=== PATIENT | female | born 1955 | race Caucasian/White ===

== ENCOUNTER 2016-04-11 21:12 | Inpatient (IN) ==
--- NOTE | 2016-04-11 21:50 | Emergency Department Note ---
Arrival - Arrival Chief Complaint: Arrhythmia/Palpitations Stated Complaint: PALPATATIONS AND SOB ED Nursing Triage Note: TRANSFERRED FROM [facility] WITH C/O SOB AND PALPATATIONS. DENIES CP. REPORTS SOB ON EXERTION Mode of Arrival: Stretcher Limitations: No Limitations Source: Patient Time Seen by Provider: 04/11/16 21:41 - History of Present Illness HPI Narrative: This 60-year-old white female presented to her doctor's office earlier today with shortness of breath and chest tightness associated with a sensation of palpitations. In the doctor's office she was found to have SVT at 140. She was subsequently transferred to [facility] whereby the time she reached there, she converted to a sinus rhythm at 100. Laboratory at [facility] revealed a bump in troponin and for this reason she was transferred to this institution for further evaluation. She was given an aspirin Lovenox Lopressor and nitro paste at [facility] before transfer here. She specifically denies complaints of diaphoresis, nausea, or vomiting with this incident. Currently she feels improved and in no acute distress. Onset (ago): hour(s) (patient presents 8 hours post onset of symptoms) Consistency: now resolved Date of Last Menstrual Period: HYST Allergies/Adverse Reactions: Allergies Allergy/AdvReac Type Severity Reaction Status Date / Time codeine Allergy Mild Vomiting Verified 04/11/16 21:24 sulfamethoxazole Allergy Mild Vomiting Verified 04/11/16 21:24 [From Bactrim] trimethoprim [From Bactrim] Allergy Mild Vomiting Verified 04/11/16 21:24 Review of System - Review of System 12 point system: reviewed and no additional remarkable complaints except as stated - Review of System Constitutional: Present: as per HPI Respiratory: Present: as per HPI Cardiovascular: Present: as per HPI Gastrointestinal: Present: as per HPI Medical,Surgical,& Family Hx - Medical History Cardio: History of: Hypertension Gastrointestinal: History of: Diverticulitis/ Diverticulosis, GERD, GI Problems (RECTAL BLEED) Musculoskeletal: History of: Back/Neck Problems (BACK SURGERY) - Surgical History Abdominal Surgeries: Surgical HX of: Cholecystectomy Reproductive Surgeries: Surgical HX of;: Hysterectomy Orthopedic Surgeries: Surgical HX of;: Total Hip Replacement (BILATERAL) - Social History Smoking Status: Never smoker Frequency of Alcohol Use: None Type of Drug Use: None Exam Physical Examination: GENERAL: Obese white female in no acute distress, take him to use another in no acute distress. HEENT: Normocephalic. No trauma. Moist mucous membranes. EOMI. PERRLA. ENT clear NECK: Supple. No adenopathy. JVD CARDIAC: Regular. 1/4 daniel, loud p2. Heart rate 80 CHEST: Clear to auscultation. No respiratory distress. O2 sat 97% ABDOMEN: Soft. Nontender. Active bowel sounds. EXTREMITIES: No trauma. Normal ROM. No pedal edema. SKIN: No diaphoresis. No rash. NEURO: Alert. No focal deficits. Vital Signs: Vital Signs Temperature 98.3 F 04/11/16 21:13 Pulse Rate 79 04/11/16 21:13 Respiratory Rate 18 04/11/16 21:13 Blood Pressure 195/111 04/11/16 21:13 O2 Sat by Pulse Oximetry 97 04/11/16 21:13 Course - Reevaluation(s) Reevaluation #1: Discussed with patient the need for hospitalization for further evaluation given her cardiac enzyme - Consultations Consultation #1: Discussed with Dr. Galvan, hospitalist who will admit for further evaluation and treatment Results - Labs Labs: Lab results per [facility] glucose 116 creatinine 1.7 BUN 16 potassium 4.1 white blood cell count 9500 hematocrit 39 troponin 0.159 CK 84 MB 1.8 Time noted the increase in troponin by our lab. - Impressions EKG per [facility] sinus tachycardia at 100 with normal DE interval and QRS duration although prolonged QT interval noted. No acute injury pattern noted. - Diagnostic Findings Procedure: Chest x-ray: image reviewed by me, report reviewed by me (area megaly otherwise no acute changes) Disposition Clinical Impression: abnormal cardiac enzymes, recurrent SVT Case discussed with: patient Disposition: Still a Patient Condition: Stable Time of Disposition: 22:54
--- NOTE | 2016-04-11 22:09 | EKG Report ---
Stationary ECG Study [facility] ER Test Date: 04/11/2016 10:08:03 PM Pat Name: JULITO SINGH Department: Room: Gender: F Silver Solderer: : 1955 Requested by: Magdiel Graham Order Number: [id number] Reading MD: ARPIT HOLBROOK Intervals [place] Rate: 91 P: 51 ND: 154 QRS: 36 QRSD: 68 T: 132 QT: 404 QTc: 452 Interpretive Statements SINUS RHYTHM ST DEVIATION AND MODERATE T-WAVE ABNORMALITY, CONSIDER ANTEROLATERAL ISCHEMIA Electronically Signed On 04-12-16 13:12:04 EMBEDDED LINUX ENGINEER by ARPIT HOLBROOK [id number]
--- NOTE | 2016-04-11 22:31 | XRay Report ---
Referring Physician: Magdiel Cleary Exam: XR chest 1V portable Date: April 11, 2016 at 9:47 PM Reason: Shortness of breath Comparison: Chest one view April 11, 2016 at 6:44 PM Findings: There is borderline cardiomegaly. There is mild density at the peripheral aspect of the left lung base. This could represent soft tissue artifact, but consolidation or mild left pleural fluid is not excluded. A followup chest PA lateral study would be helpful. No pneumothorax is identified. No acute osseous process is seen. Impression: 1. Borderline cardiomegaly. 2. There is mild density at the peripheral aspect of the left lung base. This could represent represent soft tissue artifact, but consolidation or mild left pleural fluid is not excluded. Followup with a chest PA lateral study would be helpful. PROCEDURE INTERPRETED AT [facility] DEPARTMENT OF RADIOLOGY Final Report Signed by: Dr. Blaine Cleveland
[2016-04-11 22:38] LABS: Troponin I Only 0.187 NG/ML (0.00-0.045)
[2016-04-11] MEDS ORDERED: hydrALAZINE 20 MG/1 ML VIAL IV STA (22:52)
[2016-04-11] MEDS ORDERED: hydrALAZINE 20 MG/1 ML VIAL ONE (22:54)
[2016-04-12] MEDS ORDERED: ZALEPLON 5 MG CAPSULE PO PRN (00:04)
[2016-04-12] MEDS ORDERED: ACETAMINOPHEN 325 MG TABLET PO PRN (00:04)
[2016-04-12] MEDS ORDERED: ENOXAPARIN 40 MG/0.4 ML SYRINGE SUBCUT SCH (00:04)
--- NOTE | 2016-04-12 00:17 | Hospitalist History & Physical ---
Assessment and Plan (1) Paroxysmal SVT (supraventricular tachycardia) Status: Acute Assessment and plan: The patient is admitted to the hospital with paroxysmal supraventricular tachycardia which has since terminated. The patient be hydrated and observed overnight the patient will have thyroid function testing and repeat troponin in the morning we will obtain cardiology consultation Current Visit: Yes (2) H/O iron deficiency anemia Status: Chronic Current Visit: Yes History of Present Illness Chief complaint: palpitations and abnormal troponin History of present illness: Ms. Collins is a 60 year old female with history of paroxysmal supraventricular tachycardia. The patient has spell on the date of admission to the hospital. She was seen in the physician's office and noted to have heart rate of about 140. She was referred to the emergency room at [facility] and subsequently transferred to [facility] when her troponin was found to be minimally elevated. The tachycardia was terminated. The patient now complains of generalized weakness without shortness of breath. The patient is not having any angina. The patient's previous symptoms were moderate, continuous, and improved after tachycardia was terminated at [facility]. Home Medications Medication Instructions Recorded Confirmed Type ACETAMIN/diphenhydrAMIN 500-25 1 tablet PO BEDTIME 04/11/16 04/11/16 History [Tylenol PM] Citalopram [CeleXA] 40 mg PO DAILY 04/11/16 04/11/16 History Docusate Sodium 100 mg PO DAILY 04/11/16 04/11/16 History Metoprolol Tartrate 100 mg PO BID 04/11/16 04/11/16 History Multivit-Min/FA/Lycopene/Lut 1 tablet PO DAILY 04/11/16 04/11/16 History [Centrum Silver Tablet] Omeprazole [Prilosec] 20 mg PO BID 04/11/16 04/11/16 History Potassium Citrate [Urocit K] 10 meq PO BID 04/11/16 04/11/16 History Ranitidine HCl [Zantac] 300 mg PO BID 04/11/16 04/11/16 History hydrALAZINE TAB [Apresoline Tab] 100 mg PO BID 04/11/16 04/11/16 History Ascorbic Acid [Vitamin C] 125 mg PO BID 04/12/16 04/12/16 History Ferrous Sulfate 325 mg PO BID 04/12/16 04/12/16 History Allergies Allergy/AdvReac Type Severity Reaction Status Date / Time codeine Allergy Mild Vomiting Verified 04/11/16 21:24 sulfamethoxazole Allergy Mild Vomiting Verified 04/11/16 21:24 [From Bactrim] trimethoprim [From Bactrim] Allergy Mild Vomiting Verified 04/11/16 21:24 Medical,Surgical,& Family Hx - Medical History Cardio: History of: Hypertension Gastrointestinal: History of: Diverticulitis/ Diverticulosis, GERD, GI Problems (RECTAL BLEED) Musculoskeletal: History of: Back/Neck Problems (BACK SURGERY) - Surgical History Abdominal Surgeries: Surgical HX of: Cholecystectomy Reproductive Surgeries: Surgical HX of;: Hysterectomy Orthopedic Surgeries: Surgical HX of;: Total Hip Replacement (BILATERAL) - Social History Smoking Status: Never smoker Frequency of Alcohol Use: None Type of Drug Use: None Marital Status: Lives With:: Spouse Functional capacity: independent ambulation 12 point system: reviewed and no additional remarkable complaints except as stated Exam - Constitutional Exam: Constitutional System: Mild distress. Mild tremulousness. Head: Normocephalic, atraumatic. Ears, Nose and Throat System: No evidence of Otitis or Mastoiditis. No epistaxis or discharge Eyes System: Pupils equal, round, and reactive. Extraocular muscles intact. Neck: Supple, without adenopathy, No jugular venous distention. No thyromegaly , neck mass, or prior surgery apparent. Respiratory System: Chest clear to auscultation. Cardiovascular System: Heart with regular rate and rhythm. No murmur. GI System: Abdomen soft, nontender. Normoactive bowel sounds present. Musculoskeletal System: limbs with no pedal edema. Full distal pulses. Neurological System: No discernable sensory deficit. No aphasia Psychiatric System: Conversation is rational Results - Labs Lab Results: I have reviewed the past 24 hour labs Labs: Troponin test at [facility] was 0.159 and repeat at [facility] with 0.187
[2016-04-12] MEDS: SODIUM CHLORIDE 0.9% 1,000 ML IV SCH ×2 (03:05→14:51)
[2016-04-12 06:01] LABS: Risk Ratio 8.34; VLDL CHOLESTEROL 62.4 MG/DL
[2016-04-12 06:02] LABS: Calcium 8.7 MG/DL (8.5-10.1); Osmolality,Calculated 290.6 MOS/KG (273-304); Potassium 3.4 MMOL/L (3.5-5.1)
[2016-04-12 06:08] LABS: Troponin I Only 0.132 NG/ML (0.00-0.045)
--- NOTE | 2016-04-12 07:19 | EKG Report ---
Stationary ECG Study [facility] Test Date: 04/12/2016 7:18:05 AM Pat Name: JULITO SINGH Department: Room: 273 Gender: F Data Warehouse Consultant: KESHA : 1955 Requested by: Sravan Galvan Order Number: [id number] Reading MD: ARPIT HOLBROOK Intervals [place] Rate: 92 P: 66 [place]: 145 QRS: 57 QRSD: 78 T: 124 QT: 403 QTc: 452 Interpretive Statements SINUS RHYTHM ST DEVIATION AND MODERATE T-WAVE ABNORMALITY, CONSIDER ANTEROLATERAL ISCHEMIA Electronically Signed On 04-12-16 13:17:43 COFFEE SAMPLER by ARPIT HOLBROOK [email or web address]
[2016-04-12] MEDS ORDERED: ASPIRIN EC 81 MG TABLET PO SCH (09:00)
[2016-04-12] MEDS ORDERED: POTASSIUM CHLORIDE RIDER 10 MEQ in PREMIX 1 EACH IV PRN (09:53)
[2016-04-12] MEDS ORDERED: diphenhydrAMINE CAP 25 MG CAPSULE PO ONE (09:53)
[2016-04-12] MEDS ORDERED: DIAZEPAM 5 MG TABLET PO ONE (09:53)
[2016-04-12] MEDS ORDERED: MAGNESIUM SULF RIDER 2 GM in PREMIX 1 EACH IV PRN (09:53)
--- NOTE | 2016-04-12 10:00 | Cardiology Consult Note ---
I, Cally Jhaveri RN, am scribing for, and in the presence of, Sincere Hsieh MD 09:59. Assessment and Plan - Time spent with patient Time spent with patient: Greater than 30 minutes (1) Paroxysmal SVT (supraventricular tachycardia) Status: Acute Assessment and plan: 1. 60-year-old WF with history of anemia remotely with multiple transfusions but none in the last year, with reported negative workup (negative pill camera down here about 23 years ago), with 3 days of exertional chest discomfort with walking across the room which is worsening associated with significant dyspnea on exertion, mild troponin elevation suggestive of non-STEMI 2. Reported SVT, but I have only seen sinus tachycardia on the strips/tracings that have been shown; they do show T wave inversion suggestive of anterior ischemia 3. Check TSH rule out thyroid disease 4. Significant dyslipidemia noted, start high-intensity statin 5. Lovenox 100 mg subcutaneously now 6. Recommend urgent catheterization I discussed with the patient arrest and benefits of heart catheterization including but not limited to: , stroke, heart attack, vascular damage, reaction to medicine or dye, bleeding requiring blood transfusion, failure the procedure, possible need for planned or emergency heart surgery. I have answered all the patient's questions and the patient is agreeable to proceed. Current Visit: Yes (2) H/O iron deficiency anemia Status: Chronic Current Visit: Yes History of Present Illness - Data of Consult Patient: new to practice Consult date: 04/12/16 Requesting Physician: Sravan Galvan - Consult Narrative Reason for consult: SVT History of present illness: Ms. Collins is a 60 year old female who has been seen by a lens inspector at [facility] in the past, but never followed up. She was sent there when she was having issues with anemia and thinks she may have had AFib. She has a history of HTN and asthma. Surgical history includes cholecystectomy, hysterectomy, bilateral hip replacements, and back surgery. Family history includes mother with tachycardia and breast cancer, father with alzheimer's, and sister with seizures. She reports she was in her usual state of health until Friday morning she woke up feeling tired. About 2pm on Friday, she became more tired and also became short of breath and had chest pain. She describes the chest pain as a tightness in the center of her chest and does not radiate. The chest pain and shortness of breath gets worse when she gets up and walks and goes away when she lays down. She thought her blood counts may have been low, because she has had these symptoms associated with anemia in the past. Her symptoms did not improve so she went to Urgent Care in [place] on afternoon where she was seen by Dr. Cleveland. According to the chart, she was found to be in SVT with heart rates in the 140's at the clinic and was sent to [facility] where she was in sinus rhythm with heart rates at 100. Currently she is in sinus tach with heart rates in the 110's. She is laying in bed and is pain free and denies dyspnea. She reports when she gets up to go to the bathroom, she gets weak and dizzy and feels as if she will pass out. Her troponins here have been 0.187 and 0.132, creatinine 1.5, and potassium of 3.4. H&H done at [facility] yesterday was 13.6 and 39.9. She drinks 1-2 cans of soft drink/ day, 2 glasses of tea/day, and reports she took Nyquil Cold & Sinus 2 tablets x 1 dose on Friday. CC: Austyn Fernandez MD - Home Medications and Allergies Home Medications: Home Medications Medication Instructions Recorded Confirmed Type ACETAMIN/diphenhydrAMIN 500-25 1 tablet PO BEDTIME 04/11/16 04/11/16 History [Tylenol PM] Citalopram [CeleXA] 40 mg PO DAILY 04/11/16 04/11/16 History Docusate Sodium 100 mg PO DAILY 04/11/16 04/11/16 History Metoprolol Tartrate 100 mg PO BID 04/11/16 04/11/16 History Multivit-Min/FA/Lycopene/Lut 1 tablet PO DAILY 04/11/16 04/11/16 History [Centrum Silver Tablet] Omeprazole [Prilosec] 20 mg PO BID 04/11/16 04/11/16 History Potassium Citrate [Urocit K] 10 meq PO BID 04/11/16 04/11/16 History Ranitidine HCl [Zantac] 300 mg PO BID 04/11/16 04/11/16 History hydrALAZINE TAB [Apresoline Tab] 100 mg PO BID 04/11/16 04/11/16 History Ascorbic Acid [Vitamin C] 125 mg PO BID 04/12/16 04/12/16 History Ferrous Sulfate 325 mg PO BID 04/12/16 04/12/16 History Allergies/Adverse Reactions: Allergies Allergy/AdvReac Type Severity Reaction Status Date / Time codeine Allergy Mild Vomiting Verified 04/11/16 21:24 sulfamethoxazole Allergy Mild Vomiting Verified 04/11/16 21:24 [From Bactrim] trimethoprim [From Bactrim] Allergy Mild Vomiting Verified 04/11/16 21:24 - Constitutional Constitutional: Present: as per HPI - EENT Eyes: Present: requires corrective lense Ears: Absent: decreased hearing, ear pain Nose, mouth and throat: Absent: epistaxis, neck pain - Cardiovascular Cardiovascular: Present: chest pain with activity, dyspnea on exertion, palpitations. Absent: edema, radiating jaw, neck or arm pain - Respiratory Respiratory: Present: dyspnea on exertion. Absent: cough, hemoptysis - Gastrointestinal Gastrointestinal: Present: diarrhea. Absent: abdominal pain, constipation, hematemesis, nausea, vomiting - Genitourinary Genitourinary: Absent: difficulty urinating, flank pain, hematuria, urinary frequency - Musculoskeletal Musculoskeletal: Absent: arthralgias - Neurological Neurological: Present: dizziness. Absent: abnormal gait, abnormal speech, confusion, syncope - Psychiatric Psychiatric: Absent: anxiety, confusion, depression - Endocrine Endocrine: Present: fatigue - Hematologic/Lymphatic Hematologic/Lymphatic: Present: other (hx of anemia) Medical,Surgical,& Family Hx - Medical History Cardio: History of: Cardiac Dysrhythmia (she thinks she may have afib in the past at [facility]), Hypertension Gastrointestinal: History of: Diverticulitis/ Diverticulosis, GERD, GI Problems (RECTAL BLEED) Musculoskeletal: History of: Back/Neck Problems (BACK SURGERY) Hematology: History of: Anemia - Surgical History Abdominal Surgeries: Surgical HX of: Cholecystectomy Reproductive Surgeries: Surgical HX of;: Hysterectomy Orthopedic Surgeries: Surgical HX of;: Total Hip Replacement (BILATERAL) Additional Surgical History: back surgery - Family History Family History: Reports;: Family Cancer (mother with breast cancer), Family Psychiatric Problems (father with alzheimer's), Additional Family History ( sister with seizures) - Social History Smoking Status: Never smoker Have you smoked in the last 12 months: No Frequency of Alcohol Use: None Type of Drug Use: None Marital Status: Lives With:: Spouse Functional capacity: independent ambulation Physical Examination Vital Signs Temp Pulse Resp BP Pulse Ox 98.3 F 79 18 195/111 97 04/11/16 21:13 04/11/16 21:13 04/11/16 21:13 04/11/16 21:13 04/11/16 21:13 General: Present: Appears Well, No Apparent Distress HEENT: Present: Mucus Membranes Moist Neck: Present: Supple Neck, Midline Trachea, No JVD/HJR Cardiac: Present: Regular Rhythm, Systolic Murmur, Tachycardia Lungs: Present: Normal Breath Sounds. Absent: Oxygen Neuro: Absent: Essential Tremor Abdomen: Present: Soft, Active Bowel Sounds, Non-Tender. Absent: Distended Skin: Present: Clear Musculoskeletal: Present: No Pain, Normal Range of Motion Gait: Present: Normal Gait Extremities: Present: Normal Gait, No Edema Result/EKG - Labs CBC & BMP: 04/12/16 04:40 Lab Results: I have reviewed the past 24 hour labs Labs: Laboratory Results - last 24 hr 04/12/16 04/12/16 04:40 04:40 Sodium 146 H Potassium 3.4 L Chloride 108 H Carbon Dioxide 26 Anion Gap 15.4 H BUN 16 Creatinine 1.50 H GFR Calculation 195 BUN/Creatinine Ratio 10.00 Glucose 91 Calculated Osmolality 290.6 Calcium 8.7 Magnesium 2.0 Total Creatine Kinase 84 Troponin I 0.132 H D Triglycerides 312 H Cholesterol 242 H LDL Cholesterol 159.0 VLDL Cholesterol 62.4 HDL Cholesterol 29 L Heart Disease Risk Ratio 8.34 - EKG EKG results: interpreted by me EKG shows: tachycardia, sinus rhythm Specialty Discharge - Follow Up or Referrals - Discharge Medications No Action Potassium Citrate [Urocit K] 10 meq PO BID Omeprazole [Prilosec] 20 mg PO BID Ferrous Sulfate 325 mg PO BID Multivit-Min/FA/Lycopene/Lut [Centrum Silver Tablet] 1 tablet PO DAILY Docusate Sodium 100 mg PO DAILY Citalopram [CeleXA] 40 mg PO DAILY hydrALAZINE TAB [Apresoline Tab] 100 mg PO BID Metoprolol Tartrate 100 mg PO BID Ranitidine HCl [Zantac] 300 mg PO BID ACETAMIN/diphenhydrAMIN 500-25 [Tylenol PM] 1 tablet PO BEDTIME Ascorbic Acid [Vitamin C] 125 mg PO BID Jori Lemus Randall Scott, MD, personally performed the services described in this documentation, ascribed by Cally Jhaveri RN in my presence, and it is both accurate and complete [id number] .
[2016-04-12] MEDS ORDERED: ENOXAPARIN 80 MG/0.8 ML SYRINGE SUBCUT ONE (10:06)
[2016-04-12] MEDS: POTASSIUM CHLORIDE 20 MEQ TABLET PO SCH ×2 (10:27→21:19)
[2016-04-12] MEDS: PANTOPRAZOLE 40 MG TABLET PO SCH (10:27)
--- NOTE | 2016-04-12 10:30 | Event Note ---
Patient admitted to my service by Dr. Galvan overnight. She was seen this morning by him. We getting cardiology to see her. She will undergo cardiac catheterization. I have ordered a TSH level for completion of workup.
[2016-04-12 10:50] LABS: Basophils % 0.6 % (0.0-0.8); Eosinophils % 0.6 % (0.00-10.9); Hematocrit 36.5 VOL% (35.7-47.0); Hemoglobin 12.4 GM/DL (12.0-16.0); Immature Granulocytes % 0.3 %; Immature Granulocytes Absolute 0.02 #; Lymphocytes # 1.4 10*3/uL (1.4-4.0); Lymphocytes % 22.2 % (21.3-54.2); Mean Corpuscular Hemoglobin 30 PG (27-34); Mean Platelet Volume 10.3 FL (9.6-12.0); Monocytes # 0.6 10*3/uL (0.11-0.8); Monocytes % 8.5 % (1.7-12.7); Neutrophils # 4.4 10*3/uL (1.4-7.4); Neutrophils % 67.8 % (38.7-73.9); Platelet Count 249 10*3/uL (130-400); Red Blood Count 4.15 10*6/uL (3.8-5.5); Red Cell Distribution Width 12.6 % (9.3-17.3); White Blood Count 6.5 10*3/uL (4.5-13.71)
[2016-04-12] MEDS ORDERED: LIDOCAINE 1% 20 ML VIAL ONE (11:02)
[2016-04-12] MEDS ORDERED: HYDROmorphone 2 MG/1 ML VIAL ONE (11:11)
[2016-04-12] MEDS ORDERED: MIDAZOLAM 2 MG/2 ML VIAL ONE (11:12)
[2016-04-12] MEDS ORDERED: LABETALOL 20 MG/4 ML SYRINGE IV ONE (11:19)
[2016-04-12] MEDS ORDERED: TICAGRELOR 90 MG TABLET ONE (11:27)
[2016-04-12] MEDS ORDERED: HYDROmorphone 2 MG/1 ML VIAL IV PRN (11:36)
[2016-04-12] MEDS ORDERED: NITROGLYCERIN SL 0.4 MG TABLET SL PRN (11:36)
[2016-04-12] MEDS ORDERED: ONDANSETRON 4 MG/2 ML VIAL IV PRN (11:36)
[2016-04-12] MEDS ORDERED: SODIUM CHLORIDE 0.45% 1,000 ML IV SCH (12:00)
--- NOTE | 2016-04-12 13:10 | Cardiac Catheterization ---
Date of Procedure:: 04/12/16 Post-op diagnosis: same Procedure: Procedures performed: 1. Left heart catheterization 2. Coronary angiography 3. Left ventriculography 4. Primary stenting of mid LAD disease with drug-eluting stent (3.5 X 20 for synergy) 5. Right femoral arterial reclosure with ancillary device Brief clinical summary: Mrs. Collins a 60-year-old with axillary angina over the last 2-3 days, diagnosed with non-STEMI; she has T-wave inversions anteriorly suggesting ischemia in this distribution. Description of procedure: After obtaining informed consent, the right groin was prepped and draped in the usual sterile fashion. Next a short 6 O[place]i sheath was placed in the right femoral artery using a modified Seldinger technique, after the patient received IV sedation and local anesthetic. Next a JL4 catheter was advanced over a guidewire under fluoroscopic guidance, and was engaged to the left coronary artery after which angiography was performed in multiple views. This was then removed over a wire, and a JR4 catheter was advanced in similar fashion was engaged the right coronary artery after which angiography was performed in multiple views. Percutaneous coronary intervention wasn't performed as described below. Next a bent pigtail catheter was advanced into the left ventricle, where hemodynamic measurements were obtained, left ventriculography was performed. I was able to visualize the sheath on angiogram which showed that the sheath was inserted in the right common femoral artery in a vessel suitable for closure. Hemostasis was obtained with Angio-Seal device with no residual bleeding. She was transferred from the [facility] lab[facility] in good condition without complication. Coronary angiography: Left main coronary artery is normal developed and free of disease. Left anterior sitting or is at least average in caliber and wraps around the apex. It gives off a in average caliber first diagonal branch with 90% ostial stenosis. There is 90% disease in the high mid LAD shortly after the first septal baking powder mixer. The circumflex is at least average in caliber and gives off a tiny ramus branch with 30-40% mid circumflex before the takeoff of a thin OM1 branch and a larger than average OM 2 branch. The right coronary is the dominant vessel and is at least average in caliber. There is a thinner than average PDA and posterolateral branches. There are only mild to moderate irregularities. Percutaneous coronary intervention: The patient received aspirin and full dose Lovenox subcutaneous the prior to intervention. She was loaded with Brilinta on the table prior intervention. I advanced an EBU 3.5 guiding catheter which engaged the vessel and provided good support. A run through wire was advanced to the distal LAD with little difficulty. Next a 3.5 x 20 for synergy dramatics Delroy advanced across area of disease and deployed at nominal pressures. The stent looked a bit undersized the site dilated slowly to just above rated burst pressure (3.84 mm) with excellent endograft result. The patient hard she will without palpitation. Left ventriculography: Left ventricle of normal size with normal to hyperdynamic LV systolic function with ejection fraction assessment be 65-70% without segmental wall motion normality. There is no significant mitral regurgitation noted. Impression: 1. Normal LV systolic function with ejection fraction estimated to be 65-70% without segmental wall motion normality 2. Right dominant system 3. Single-vessel disease with 90% high mid LAD stenosis (likely unstable plaque /culprit) 4. Status post primary stenting of high mid LAD lesion with 3.5 x 20 with Synergy drug eluting stent dilated to 3.84 mm) with good result Recommendations discussion: I believe it achieved next a result scar distending Ms. Collins is culprit lesion. She will need to stay on baby aspirin daily and Brilinta for the time being. Discharge kidney consider tomorrow if she continues to do well. I suspect she only had sinus tachycardia not SVT, but I'm not certain of this is this was diagnosed at an outside facility? We will continue to monitor on telemetry. Anesthesia: minimal conscious sedation Surgeon / Physician: Sincere Hsieh Vice Principal: other Estimated blood loss: minimal Specimens: none sent Condition: stable Disposition: floor - Medications / Follow-up
[2016-04-12] MEDS: TICAGRELOR 90 MG TABLET PO SCH (21:19)
[2016-04-13 03:17] LABS: Calcium 8.2 MG/DL (8.5-10.1); Magnesium 1.9 MG/DL (1.8-2.4); Osmolality,Calculated 287.8 MOS/KG (273-304); Potassium 3.7 MMOL/L (3.5-5.1)
[2016-04-13] MEDS ORDERED: METOPROLOL SUCCINATE XL 50 MG TABLET PO SCH (09:00)
[2016-04-13] MEDS ORDERED: SODIUM CHLORIDE 0.9% 1,000 ML IV ONE (09:00)
[2016-04-13] MEDS: TICAGRELOR 90 MG TABLET PO SCH ×2 (10:19→21:20)
[2016-04-13] MEDS: PANTOPRAZOLE 40 MG TABLET PO SCH (10:19)
[2016-04-13] MEDS: ASPIRIN EC 81 MG TABLET PO SCH (10:19)
[2016-04-13] MEDS: POTASSIUM CHLORIDE 20 MEQ TABLET PO SCH ×2 (10:19→21:20)
--- NOTE | 2016-04-13 11:12 | Cardiology Progress Note ---
Assessment and Plan (1) H/O iron deficiency anemia Status: Chronic Current Visit: Yes (2) NSTEMI (non-ST elevated myocardial infarction) Status: Acute Assessment and plan: 1. 60-year-old WF with history of anemia remotely with multiple transfusions but none in the last year, with reported negative workup (negative pill camera down here about 23 years ago), with 3 days of exertional chest discomfort with walking across the room which is worsening associated with significant dyspnea on exertion, mild troponin elevation suggestive of non-STEMI 2. Reported SVT, but I have only seen sinus tachycardia on the strips/tracings that have been shown; they do show T wave inversion suggestive of anterior ischemia 3. Check TSH rule out thyroid disease 4. Significant dyslipidemia noted, start high-intensity statin 5. Lovenox 100 mg subcutaneously now 6. Recommend urgent catheterization I discussed with the patient arrest and benefits of heart catheterization including but not limited to: , stroke, heart attack, vascular damage, reaction to medicine or dye, bleeding requiring blood transfusion, failure the procedure, possible need for planned or emergency heart surgery. I have answered all the patient's questions and the patient is agreeable to proceed. April 13 update: 1. Mrs. Collins is now status post non-STEMI with peak troponin of 0.2, chest pain-free ambulating without any symptoms after stenting her severe high mid LAD lesion which was likely culprit lesion 2. Normal to hyperdynamic LV systolic function noted at catheterization 3. Labile hypertension with blood pressure in the 80 systolic yesterday now in the 180s systolic; interestingly she reports this is been a problem for a long time; she is a normal TSH; she may benefit from outpatient evaluation for this. 4. Add amlodipine 5 millions daily, and low-dose lisinopril 5 millions twice a day 5. Possible CKD, versus some degree of dehydration; getting IV fluid given this and her persistent sinus tachycardia at just over 100 bpm 6. Would observe overnight and plan for discharge tomorrow if no further problems Current Visit: Yes (3) HTN (hypertension), malignant Status: Acute Current Visit: Yes (4) CKD (chronic kidney disease) Status: Acute Current Visit: Yes (5) Sinus tachycardia Status: Acute Current Visit: Yes Cardiology - PN: Subj Interval history: reports feeling great with no further chest discomfort ending on the hernandez. However she has hypertension despite her hypotension yesterday. She reports "it 's been high and low for a long time now, and they've been trying to get under control. Her groin site is not hurting. She is not had any bleeding problems she is having dizziness. Exam (Progress Note) - Constitutional Vitals: Period Temp Pulse Resp BP Sys/Nuñez Pulse Ox Last 24 Hr 95.3 F-98.3 F 90-112 16-20 79-189/56-101 94-97 General appearance: no acute distress, over weight - Head Head exam: Present: normal inspection, normocephalic, atraumatic - Neck Neck exam: Present: normal inspection - Respiratory Respiratory exam: Present: clear to auscultation bilaterally. Absent: stridor, wheezes - Cardiovascular Cardiovascular exam: Present: regular rate and rhythm. Absent: diastolic murmur , rubs - GI/Abdominal GI/Abdominal exam: Present: soft. Absent: tenderness - Extremities Exam Extremities exam: Absent: edema - Neurological Exam Neurological exam: Present: alert, oriented X3, normal gait Result/EKG - Labs CBC & BMP: 04/12/16 10:35 04/13/16 01:46 Labs: Laboratory Results - last 24 hr 04/12/16 04/13/16 10:35 01:46 Sodium 144 Potassium 3.7 Chloride 108 H Carbon Dioxide 23 Anion Gap 16.7 H BUN 16 Creatinine 1.80 H GFR Calculation 29 BUN/Creatinine Ratio 8.00 Glucose 113 H Calculated Osmolality 287.8 Calcium 8.2 L Magnesium 1.9 TSH 3rd Generation 2.060 Specialty Discharge - Follow Up or Referrals - Discharge Medications No Action Potassium Citrate [Urocit K] 10 meq PO BID Omeprazole [Prilosec] 20 mg PO BID Ferrous Sulfate 325 mg PO BID Multivit-Min/FA/Lycopene/Lut [Centrum Silver Tablet] 1 tablet PO DAILY Docusate Sodium 100 mg PO DAILY Citalopram [CeleXA] 40 mg PO DAILY hydrALAZINE TAB [Apresoline Tab] 100 mg PO BID Metoprolol Tartrate 100 mg PO BID Ranitidine HCl [Zantac] 300 mg PO BID ACETAMIN/diphenhydrAMIN 500-25 [Tylenol PM] 1 tablet PO BEDTIME Ascorbic Acid [Vitamin C] 125 mg PO BID
[2016-04-13] MEDS: LISINOPRIL 2.5 MG TABLET PO SCH ×2 (14:12→21:20)
[2016-04-13] MEDS: amLODIPine 5 MG TABLET PO SCH (14:12)
[2016-04-14 02:56] LABS: Basophils % 0.5 % (0.0-0.8); Eosinophils # 0.3 10*3/uL (0.0-0.87); Eosinophils % 3.4 % (0.00-10.9); Hematocrit 35.8 VOL% (35.7-47.0); Hemoglobin 11.9 GM/DL (12.0-16.0); Immature Granulocytes % 0.3 %; Immature Granulocytes Absolute 0.02 #; Lymphocytes # 1.4 10*3/uL (1.4-4.0); Lymphocytes % 18.6 % (21.3-54.2); Mean Corpuscular HGB Conc 33.2 GM/DL (32-36); Mean Corpuscular Hemoglobin 29 PG (27-34); Mean Platelet Volume 10.5 FL (9.6-12.0); Monocytes # 0.6 10*3/uL (0.11-0.8); Monocytes % 7.4 % (1.7-12.7); Neutrophils # 5.4 10*3/uL (1.4-7.4); Neutrophils % 69.8 % (38.7-73.9); Platelet Count 255 10*3/uL (130-400); Red Blood Count 4.07 10*6/uL (3.8-5.5); Red Cell Distribution Width 12.5 % (9.3-17.3); White Blood Count 7.7 10*3/uL (4.5-13.71)
[2016-04-14 03:26] LABS: Blood Urea Nitrogen 12 MG/DL (7-18); Calcium 9.1 MG/DL (8.5-10.1); Glucose 92 MG/DL (74-106); Magnesium 2.1 MG/DL (1.8-2.4); Osmolality,Calculated 285.8 MOS/KG (273-304); Potassium 3.9 MMOL/L (3.5-5.1); Sodium 144 MMOL/L (136-145)
[2016-04-14 07:55] VITALS: BP 187/90
--- NOTE | 2016-04-14 08:34 | EKG Report ---
Stationary ECG Study [facility] Test Date: 04/14/2016 8:33:01 AM Pat Name: JULITO SINGH Department: Room: 273 Gender: F Bank Messenger: KESHA : 1955 Requested by: Sincere Ayon Order Number: [id number] Reading MD: ASTON TERRY Intervals [place] Rate: 69 P: 57 MD: 156 QRS: 46 QRSD: 78 T: 131 QT: 444 QTc: 464 Interpretive Statements SINUS RHYTHM ST DEVIATION AND MODERATE T-WAVE ABNORMALITY, CONSIDER ANTEROLATERAL ISCHEMIA - PREVIOUSLY CITED 04/12/2016 BUT SLIGHTLY MORE PROMINENT Electronically Signed On 04-14-16 11:33:21 MECHANICAL FACILITIES TECHNICIAN by ASTON TERRY [email or web address]
[2016-04-14] MEDS: POTASSIUM CHLORIDE 20 MEQ TABLET PO SCH (08:57)
[2016-04-14] MEDS: ASPIRIN EC 81 MG TABLET PO SCH (08:57)
[2016-04-14] MEDS: LISINOPRIL 2.5 MG TABLET PO SCH (08:57)
[2016-04-14] MEDS: PANTOPRAZOLE 40 MG TABLET PO SCH (08:57)
[2016-04-14] MEDS: amLODIPine 5 MG TABLET PO SCH (08:58)
[2016-04-14] MEDS ORDERED: CARVEDILOL 6.25 MG TABLET PO SCH (09:00)
--- NOTE | 2016-04-14 10:08 | Discharge Summary ---
Hospital Course - Hospital Course Hospital Course: Mrs. Collins initially was reportedly having episodes of SVT, but in actuality it appears that she was is having sinus tachycardia. I believe this was related to her non-STEMI/ACS. I took her to the labor operator and found her to have a proximal LAD lesion which was significant and appeared unstable. It was stented successfully with drug-eluting stent with good result. She was kept until today due to mild tachycardia, and more from severe hypertension. I started amlodipine change her Coreg and her blood pressure is better but is still a bit elevated. She is feeling quite well and is walking loops around the nurse's station with no symptoms. She is anxious for discharge. She had LDL 159 noted in high intensity statin has been starting continue. Size and need to take her and a platelet therapy without fail, the taking over medications will be important for her. Also close follow-up of blood pressure management will also be important. Diagnosis - Discharge Diagnosis (1) H/O iron deficiency anemia Status: Chronic (2) NSTEMI (non-ST elevated myocardial infarction) Status: Acute (3) HTN (hypertension), malignant Status: Acute (4) CKD (chronic kidney disease) Status: Acute (5) Sinus tachycardia Status: Acute Specialty Discharge - Follow Up or Referrals Follow up with: Sincere Hsieh MD [Physician] - 1 Week (With EKG FLP CMP CBC) - Discharge Medications No Action Potassium Citrate [Urocit K] 10 meq PO BID Omeprazole [Prilosec] 20 mg PO BID Ferrous Sulfate 325 mg PO BID Multivit-Min/FA/Lycopene/Lut [Centrum Silver Tablet] 1 tablet PO DAILY Docusate Sodium 100 mg PO DAILY Citalopram [CeleXA] 40 mg PO DAILY hydrALAZINE TAB [Apresoline Tab] 100 mg PO BID Metoprolol Tartrate 100 mg PO BID Ranitidine HCl [Zantac] 300 mg PO BID ACETAMIN/diphenhydrAMIN 500-25 [Tylenol PM] 1 tablet PO BEDTIME Ascorbic Acid [Vitamin C] 125 mg PO BID Discharge Plan - Discharge Medications No Action Potassium Citrate [Urocit K] 10 meq PO BID Omeprazole [Prilosec] 20 mg PO BID Ferrous Sulfate 325 mg PO BID Multivit-Min/FA/Lycopene/Lut [Centrum Silver Tablet] 1 tablet PO DAILY Docusate Sodium 100 mg PO DAILY Citalopram [CeleXA] 40 mg PO DAILY hydrALAZINE TAB [Apresoline Tab] 100 mg PO BID Metoprolol Tartrate 100 mg PO BID Ranitidine HCl [Zantac] 300 mg PO BID ACETAMIN/diphenhydrAMIN 500-25 [Tylenol PM] 1 tablet PO BEDTIME Ascorbic Acid [Vitamin C] 125 mg PO BID - Follow Up or Referral - Forms/Instructions Instructions: Left Heart Catheterization (DC), Heart Healthy Diet (GEN), Coronary Intravascular Stent Placement (DC) Exam - Constitutional Vitals: Period Temp Pulse Resp BP Sys/Nuñez Pulse Ox Last 24 Hr 97.0 F-98.4 F 74-97 16-20 149-199/78-105 95-98 General appearance: no acute distress, over weight - Head Head exam: Present: normal inspection, normocephalic, atraumatic - Neck Neck exam: Present: normal inspection - Respiratory Respiratory exam: Present: clear to auscultation bilaterally - Cardiovascular Cardiovascular exam: Present: regular rate and rhythm. Absent: diastolic murmur , rubs - GI/Abdominal GI/Abdominal exam: Present: soft. Absent: tenderness - Extremities Exam Extremities exam: Absent: edema Discharge Results Procedures and tests throughout hospitalization: Pending Orders 04/12/16 10:41 CL heart Routine Labs on day of discharge: Labs from last 24 hours 04/14/16 04/14/16 02:31 02:30 WBC 7.7 RBC 4.07 Hgb 11.9 L Hct 35.8 MCV 88.0 MCH 29 MCHC 33.2 RDW 12.5 Plt Count 255 MPV 10.5 Neut % (Auto) 69.8 Lymph % (Auto) 18.6 L [place] % (Auto) 7.4 Eos % (Auto) 3.4 Baso % (Auto) 0.5 Neut # (Auto) 5.4 Lymph # (Auto) 1.4 [place] # (Auto) 0.6 Eos # (Auto) 0.3 Baso # (Auto) 0.0 Immature Gran % 0.3 Nucleated RBC % 0.0 Immature Gran # 0.02 Nucleated RBCs # 0.00 Sodium 144 Potassium 3.9 Chloride 106 Carbon Dioxide 27 Anion Gap 14.9 BUN 12 Creatinine 1.40 H GFR Calculation 40 BUN/Creatinine Ratio 8.00 Glucose 92 Calculated Osmolality 285.8 Calcium 9.1 Magnesium 2.1 Total Creatine Kinase 167 D CK-MB (CK-2) 2.2 Troponin I 0.060 H D DS: Provider Date of admission: 04/11/16 22:49 Primary care physician: . No PCP Attending physician on admission: Austyn Fernandez MD Consults: 04/12/16 00:04 Consult to Physician [CONS] Routine Comment: SVT Consulting Provider: Shanice Cabral Consult to Specialist Group: Cardiology Person Notified: MAN Date Notified: 04/12/16 Time Notified: 07:50 04/12/16 11:36 Consult to Cardiac Rehabilitation [CONS] Routine Reason for Cardiac Rehabilitation: Appt Out Pt Cardiac Rehab Consult Comment: nstemi stent Discharging clinician: Sincere Quezada
[2016-04-14] MEDS: TICAGRELOR 90 MG TABLET PO SCH (11:01)
== END 2016-04-14 12:20 | disposition home or self-care (01) | DRG 247 ==
LOC: EDBD → EDUNIT# → N.ED 21:12 → N.EDINP 22:49 → N.TELES 23:19
PROVIDERS: ADMIT Internal Medicine; ATTEND Internal Medicine Cardiovascular Disease
PROC: CLCCHCL (ICD-10-PCS; 2016-04-12 12:15)